=== PATIENT | female | born 1990 | race Caucasian/White ===

== ENCOUNTER 2017-03-21 10:18 | Inpatient (IN) | payer BC ==
[~2017-03-21] VITALS: Ht 167.6 cm; Wt 117.3 kg
[~2017-03-21 10:18] MED LIST: ETONMIS VAGRING
[2017-03-21] MEDS ORDERED: PRENTAB26 PO (11:07)
[2017-03-21 11:08] VITALS: Ht 167.6 cm; Wt 117.3 kg
[2017-03-21] MEDS ORDERED: LACTATED RINGER'S 1000ML 1,000 ML IV SCH ×3 (13:30→15:01)
[2017-03-21] MEDS ORDERED: LACTATED RINGER'S 1000ML 1,000 ML IV PRN (15:01)
[2017-03-21] MEDS ORDERED: LACTATED RINGER'S 1000ML 500 ML IV PRN ×2 (15:02→22:36)
[2017-03-21] MEDS ORDERED: OXYTOCIN 30 UNITS/500ML NSS IV PRN (15:15)
[2017-03-21 15:43] LABS: HEMATOCRIT 36.6 % (37-47); MEAN CELL VOLUME 85.3 fL (80-100); MEAN CORPUSCULAR HEMOGLOBIN 28.7 pg (25-34); MEAN CORPUSCULAR HGB CONC 33.6 g/dl (32-36); MEAN PLATELET VOLUME 10.7 fL (7.4-10.4); PLATELET COUNT 277 K/uL (130-400); RED BLOOD COUNT 4.29 M/uL (4.2-5.4)
[2017-03-21] MEDS ORDERED: BUPIVACAINE 0.25% 30 ML VIAL ONE (21:29)
[2017-03-21] MEDS ORDERED: EpHEDrine SULFATE INJ 50 MG/ML AMP ONE (21:29)
[2017-03-21] MEDS ORDERED: FENTANYL 2MCG/ML ROPIV 1.25MG/ML 100ML BAG EPI ONE (21:30)
[2017-03-21] MEDS ORDERED: FENTANYL CITRATE INJ 50 MCG/1 ML 2 ML VIAL ONE (21:30)
[2017-03-21] MEDS ORDERED: NALOXONE HCL INJ 1 MG in SODIUM CHLORIDE 0.9% 1000ML 1,000 ML IV PRN (22:36)
[2017-03-21] MEDS ORDERED: NALBUPHINE HCL INJ 10 MG/ML AMP IV PRN (22:45)
[2017-03-21] MEDS ORDERED: ONDANSETRON INJ 2 MG/ML 2 ML VIAL IV PRN (22:45)
[2017-03-21] MEDS ORDERED: DiphenhydrAMINE HCL 50 MG/ML VIAL IV PRN (22:45)
[2017-03-21] MEDS ORDERED: FENTANYL 2MCG/ML ROPIV 1.25MG/ML 100ML BAG EPI PRN (22:45)
[2017-03-21] MEDS ORDERED: EpHEDrine SULFATE INJ 50 MG/ML AMP IV PRN (22:45)
[2017-03-21] MEDS ORDERED: NALOXONE HCL INJ 0.4 MG/1 ML VIAL/CARP IV PRN (22:45)
[2017-03-22] MEDS ORDERED: LACTATED RINGER'S 1000ML 1,000 ML IV SCH (00:44)
[2017-03-22] MEDS ORDERED: OXYCODONE/ACETAMINOPHEN 5-325 TAB PO PRN (00:45)
[2017-03-22] MEDS ORDERED: HYDROCORTISONE ACETATE 25 MG SUPP PR PRN (00:45)
[2017-03-22] MEDS ORDERED: LANOLIN OINT EXT PRN ×2 (00:45)
[2017-03-22] MEDS ORDERED: SUPERCREAM 0.870 % 15GM JAR EXT PRN (00:45)
[2017-03-22] MEDS ORDERED: DIPHTHERIA/TETANUS/PERTUSSIS 0.5 ML SYR/VIAL IM. ONE (00:45)
[2017-03-22] MEDS ORDERED: MEASLES, MUMPS & RUBELLA VIRUS VIAL SQ. ONE (00:45)
[2017-03-22] MEDS ORDERED: OXYTOCIN 30 UNITS/500ML NSS IV PRN (00:45)
[2017-03-22] MEDS: BENZOCAINE 20% AER SPR 82.5 GM CAN EXT PRN (03:05)
[2017-03-22 03:15] VITALS: BP 126/73; PULSE 86; TEMP 36.9
--- NOTE | 2017-03-22 07:14 | Anesthesia Procedure Note ---
Anesthesia Epidural Removal Nt Date & Time Mar 22, 2017 at 07:14 Vital Signs Pain Intensity: 0.0 Vital Signs Past 12 Hours Date Time Temp Pulse Resp B/P (MAP) Pulse Ox O2 Delivery O2 Flow Rate FiO2 03/22/17 03:15 36.9 86 18 126/73 03/22/17 03:15 Room Air Notes Mental Status: alert / awake / arousable, participated in evaluation Nausea / Vomiting: adequately controlled Pain: adequately controlled Airway Patency, RR, SpO2: stable & adequate BP & HR: stable & adequate Hydration State: stable & adequate Neuraxial Anesthesia: was administered, sensory block is resolved Anesthetic Complications: no major complications apparent, pt satisfied with anesthetic care Epidural: removed without complications, with tip intact
[2017-03-22 07:20] VITALS: BP 120/86; PULSE 76; TEMP 36.8; O2SAT 100
[2017-03-22] MEDS: PRENATAL VITAMIN TAB PO SCH (07:33)
[2017-03-22] MEDS: DOCUSATE SODIUM 100 MG CAP PO SCH ×2 (07:33→20:08)
[2017-03-22] MEDS: FERROUS SULFATE 325 MG TAB PO SCH (07:33)
[2017-03-22] MEDS: IBUPROFEN 600 MG TAB PO PRN ×3 (07:33→17:52)
--- NOTE | 2017-03-22 07:58 | DELIVERY SUMMARY ---
DATE OF OPERATION: 03/22/2017 DATE OF DELIVERY: 03/22/2017. TIME OF DELIVERY OF BABY: 0013 a.m. TIME OF DELIVERY OF PLACENTA: 0034 a.m. DETAILS OF DELIVERY: The patient was found to be fully dilated and desired to push. She pushed for about 20 minutes and her perineum was found to be very short and posterior fourchette about 1.5 cm from external anal sphincter. After verbal consent was obtained small right medial lateral episiotomy was opened to prevent laceration in anal sphincter and baby's head was delivered without difficulty. Shoulders were delivered spontaneously. The baby was handed off to the mother. Mother and nose were suctioned and baby was dried. Cord was clamped x2 and cut at 1 minute delay. Cord blood was obtained. Then per patient's request cord blood was collected for donation. Vagina and perineum were checked for lacerations. There was only a small right medial lateral episiotomy which was opened earlier. No other lacerations were found. It was repaired with 2-0 Vicryl in a running locked fashion bringing the vagina and mucosa together and bulbocavernosus muscle together, skin in subcuticular fashion. Excellent hemostasis was achieved. The placenta was found to be in the vagina and delivered spontaneously intact and complete. The uterus was explored and found to be empty. Lower segment was cleared of all clots and debris, fundus was firm. EBL was 200. Mother and baby tolerated the procedure well. Sponge, lap, needle and instrument counts were correct x2. The baby was a viable female , Apgars 8/9. Weight was 2859 gr. No complications happened and I was present during the whole procedure. I attest to the content of the Intraoperative Record and any orders documented therein. Any exceptions are noted below. MTDD
[2017-03-22 12:45] VITALS: BP 126/83; PULSE 87; TEMP 36.7; O2SAT 98
[2017-03-22 18:40] VITALS: BP 121/78; PULSE 86; TEMP 36.7
[2017-03-22 20:00] VITALS: BP 135/80; PULSE 94; TEMP 36.4
[2017-03-22] MEDS: ACETAMINOPHEN 325 MG TAB PO PRN (20:11)
[2017-03-22 23:30] VITALS: BP 144/83; PULSE 90; TEMP 36.5
[2017-03-23] MEDS: IBUPROFEN 600 MG TAB PO PRN ×3 (01:02→12:29)
[2017-03-23] MEDS: ACETAMINOPHEN 325 MG TAB PO PRN (04:10)
[2017-03-23] MEDS: BENZOCAINE 20% AER SPR 82.5 GM CAN EXT PRN (04:12)
[2017-03-23 06:15] LABS: HEMATOCRIT 29.5 % (37-47)
[2017-03-23] MEDS: DOCUSATE SODIUM 100 MG CAP PO SCH (07:19)
[2017-03-23] MEDS: PRENATAL VITAMIN TAB PO SCH (07:19)
[2017-03-23] MEDS: FERROUS SULFATE 325 MG TAB PO SCH (07:19)
[2017-03-23 08:45] VITALS: BP 136/83; PULSE 86; O2SAT 98
--- NOTE | 2017-03-23 12:14 | OB/GYN Progress Note ---
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 Patient is seen and examined. She feels well, no complaints. Likes to be discharged Ambulating without dizziness Voiding without difficulty Tolerating regular diet with out N&V Bleeding is minimal No fever/ chills/ CP/ SOB/ N&V/ Leg pain Breast feeding without problems Date Time Temp Pulse Resp B/P (MAP) Pulse Ox O2 Delivery O2 Flow Rate FiO2 03/23/17 08:45 98 Room Air 03/23/17 08:45 86 18 136/83 (100) 98 Room Air 03/22/17 23:30 36.5 90 16 144/83 (103) 03/22/17 23:30 Room Air 03/22/17 20:00 36.4 94 18 135/80 (98) 03/22/17 18:40 36.7 86 18 121/78 (92) Room Air 03/22/17 18:40 Room Air 03/22/17 12:45 36.7 87 18 126/83 (97) 98 Room Air Test 03/21/17 15:23 03/21/17 15:32 03/23/17 06:04 Amniotic Fluid Protein NEG White Blood Count 12.20 H Red Blood Count 4.29 Hemoglobin 12.3 9.6 L Hematocrit 36.6 L 29.5 L Mean Corpuscular Volume 85.3 Mean Corpuscular Hemoglobin 28.7 Mean Corpuscular Hemoglobin Concent 33.6 RDW Standard Deviation 44.8 RDW Coefficient of Variation 14.5 Platelet Count 277 Mean Platelet Volume 10.7 H PE: General: Alert, orientedx3, NAD Abd: soft, NT, fundus firm, below Umbilicus Perineum intact, Lochia rubra minimal Ext; NT, no edema AP: 26 yo s/p , ppd# 1 VSS Afebrile doing well Continue routine care All questions were answered Instructions were given when to call D/C home , f/u in office
--- NOTE | 2017-03-23 12:18 | Discharge Instructions ---
Discharge Instructions Date of Service Mar 23, 2017. Admission Reason for Admission: R/O Rupture Of Membranes Discharge Discharge Diagnosis / Problem: Discharge Goals Goal(s): Routine recovery after delivery Activity Recommendations Activity Limitations: as noted below Lifting Limitations: gradually increase as tolerated Exercise/Sports Limitations: until after follow-up appointment May Resume Sexual Activity: after follow-up appointment Shower/Bathe: keep incision dry Driving or Machine Use: no limitations ACTIVITY RECOMMENDATIONS: * Gradual return to full activity over the next 2-3 weeks. * No lifting - nothing heavier than baby over the next 2-3 weeks. * Do not engage in vigorous exercise, sexual activity or sports until cleared by your physician. * Do not drive or operate any motorized equipment until cleared by your physician. * You may shower/bathe daily. BREAST CARE: If you are not breast feeding: * Wear a supportive bra 24 hours a day for one to two weeks. * Avoid stimulating your breasts and nipples as much as possible during the first few weeks after delivery. * When taking a shower, have the warm water hit your back, not breasts. * When your breasts feel full, apply ice packs. Usually three to four times a day helps ease the discomfort. * Take a mild pain medication (Tylenol/Motrin) when you are uncomfortable. If breast feeding: * Use breast milk to lubricate nipples. Lansinoh cream may be used for sore nipples. You do not need to remove cream prior to breast feeding. If using a different brand of cream, check the label for directions regarding removal of cream prior to nursing. * Wear a supportive bra. * If having problems with breasts or breast feeding, call a ergonomics consultant or your health care provider. EPISIOTOMY CARE: After delivery, if you have an episiotomy (stitches), the following steps will ease discomfort and aid healing. * For the first 24 hours after delivery, place ice packs next to your episiotomy to help reduce swelling. * After the first 24 hour-period, sitz baths, either portable or in the tub, are suggested. A shower with a shower arm sprayed over the episiotomy may be comforting. * Yocasta care should be done after each voiding and bowel movement. Squirt warm water from a plastic bottle over the perineum (region of the body between the anus and urinary opening) and pat dry. * Use Dermoplast to ease discomfort. Shake container. Stewart directly over the episiotomy. * Place a Tucks on a clean sanitary pad next to your episiotomy. OVER THE COUNTER MEDICATION: * For discomfort or pain, you may use Acetaminophen (Tylenol), Ibuprofen (Advil ), or Naproxen (Aleve) following the package directions. * For constipation you may use Colace following the package directions. SPECIAL CARE INSTRUCTIONS: When you are discharged from the hospital, it is important for you to follow the instructions listed below: * During the first week at home, you should be able to care for yourself and your baby. In addition, the usual light household activities are encouraged. * Limit your activities to the way you feel. Do not try to clean the house or move furniture. Be sensible. * If you actively engage in sports and have done so up until the time of your delivery, you may resume these activities as soon as you feel able. This may take up to one month or even longer. Use good judgment. * Continue to take your vitamins for at least six weeks after the of your baby. * Your diet need not be limited unless you were on a special diet before your delivery. Breast-feeding mothers need around 2500 calories per day and at least 64-80 ounces of fluid per day (8 to 10 glasses). * You should eat foods from the four major food groups. Crash diets or fad diets are to be avoided. Eating lean meats, fresh fruits and vegetables, low-fat dairy products, high fiber foods and a regular exercise program, will help you get back to your pre- weight without putting your health at risk. * Constipation is sometimes a problem after delivery. Take a mild laxative as needed. If breast feeding, Milk of Magnesia is acceptable to use. You may use a suppository or Fleets enema if no episiotomy. * A daily shower or tub bath is suggested. Be sure to thoroughly and gently dry the perineum. * A bloody vaginal discharge will usually continue until around four weeks post . A small amount of bleeding may continue for as long as six weeks. Vaginal discharge changes from the bright red bleeding after delivery to pink then brownish and finally yellowish-pink before becoming white and disappearing. * Bleeding may increase with activity. Your first period may come in 4-8 weeks. If you are breast feeding, your period may be delayed even longer. * [place] (sex) can begin whenever both you and your partner feel comfortable and do not have any form of genital infection. It is recommended that you wait until after your return appointment and discuss with your physician. If you have questions, please talk to your health care practitioner. A condom should be used to prevent infection and . * Foreplay, gentle intercourse and lubrication is very important the first several times to prevent pain. A water-based lubricant such as K-Y jelly or Astroglide may be used. * Tampons may be used six weeks after delivery. * Douching should be avoided for 6 weeks after delivery. * If you have RH negative blood and your baby is RH positive, you will receive RHOGAM by injection prior to discharge. The nurse will give you a card to keep with you that has the date and place that you received RHOGAM after delivery. * During your care, you had a Rubella screen done to check for the presence of rubella antibodies in your blood. If your test was negative, you will receive a Rubella vaccine prior to discharge. This vaccine may cause a fever, soreness at the injection site and flu-like symptoms. If these symptoms persist, notify your health care practitioner. is not advised for three months after a Rubella vaccine. There is a higher chance of having a baby with defects if conceived within three months of getting the vaccine. * If you were discharged 24 hours from delivery or before 48 hours: Visiting nurses will come to your home 48 hours after discharge to assess you and your baby. The visiting nurse will meet with you while you are in the hospital to arrange a time and get directions to your home. * Verbalizes understanding of car seat law as reviewed with patient nursing. * Car Seat hand-out given and reviewed with patient by nursing. * Shaken baby information reviewed with patient by nursing. Call you doctor if: * Heavy bleeding (saturating several pads an hour) or passing clots the size of your fist. * A fever >101 degrees F (38.3 degrees C) on two occasions four hours apart and/or chills. * Unusual pain in the pelvic or vaginal areas. * "Baby Blues" lasting longer than two weeks. If you have any questions or concerns, call your health care practitioner at . FOLLOW-UP VISIT: * Please call the office at to schedule a 6 week examination. It is important you keep this appointment. * It is important for you to make arrangements for either yearly or twice yearly check-ups thereafter. . Current Hospital Diet Patient's current hospital diet: Regular OB Diet Discharge Diet Recommended Diet: Regular Diet Pending Studies Studies pending at discharge: no Medical Emergencies . Who to Call and When: Medical Emergencies: If at any time you feel your situation is an emergency, please call 911 immediately. . Non-Emergent Contact Non-Emergency issues call your: Surgeon Call Non-Emergent contact if: temperature is above 100.5, temperature is above 101, your pain is not controlled, wound has increased drainage, wound has increased redness . . "Provider Documentation" section prepared by Marianela Lui. . VTE Core Measure Inpt VTE Proph given/why not?: Treatment not indicated
[2017-03-23 13:55] VITALS: BP_DIAS 83; PULSE 86; TEMP 36.5
[2017-03-23] MEDS ORDERED: BISACODYL 5 MG TABEC PO SCH (20:00)
[2017-03-24] MEDS ORDERED: BISACODYL 10 MG SUPP PR PRN (07:00)
== END 2017-03-23 13:55 | disposition home or self-care (01) | DRG 775 ==
LOC: C.OPB 10:18 → C.LD 10:18 → C.OPB 15:02 → C.OBG 03-22 03:26 → EDSTATUS 03-23 10:21
PROVIDERS: ADMIT Obstetrics & Gynecology; ATTEND Obstetrics & Gynecology
PROC: 10E0XZZ Delivery of Products of Conception, External Approach (ICD-10-PCS; principal; 2017-03-22)
PROC: 0W8NXZZ Division of Female Perineum, External Approach (ICD-10-PCS; principal; 2017-03-22)
DX: O42.92 Full-term premature rupture of membranes, unspecified as to length of time between rupture and onset of labor (principal); Z37.0 Single live birth; O75.89 Other specified complications of labor and delivery; N90.89 Other specified noninflammatory disorders of vulva and perineum; Z3A.39 39 weeks gestation of pregnancy

== ENCOUNTER 2019-02-27 23:40 | Inpatient (IN) ==
[2019-02-28] MEDS ORDERED: OXYTOCIN 30 UNITS/500 ML BAG IV PRN ×3 (00:23→15:40)
[2019-02-28 00:38] LABS: Hematocrit (blood only) 36.7 % (37-47); Hemoglobin 12.7 g/dL (12.0-16.0); Mean Corpuscular Volume 84.4 fL (80-100); Mean Platelet Volume 11.1 fL (7.4-10.4); Platelet Count 267 K/uL (130-400); RDW Coefficient of Variation 14.1 % (11.5-14.5); RDW Standard Deviation 43.9 fL (36.4-46.3); Red Blood Count 4.35 M/uL (4.2-5.4); White Blood Count 14.11 K/uL (4.8-10.8)
[2019-02-28] MEDS: LACTATED RINGER'S 1,000 ML IV PRN ×2 (00:38→07:01)
--- NOTE | 2019-02-28 00:39 | History & Physical Report ---
Date of Service February 28, 2019 Assessment & Plan (1) SROM (spontaneous rupture of membranes): 28 yo at 38 wks with SROM, early labor with mild ctxs VSS afebrile FHR reassuring GBS negative Discussed decreased risk of intraamniotic infection by augmentation/ induction of labor with pitocin She politely declined and wanted expectant management Agrees with pitocin if no change in 2 hours Plan admit, labs, monitor, SCD's, expectant management for now All questions were answered History of Present Illness Chief Complaint: Leaking of amniotic fluid Primary Care Provider: Deandre Sauceda MD Patient is a 28 yo at 38 wks, who felt a gush of fluid leakage at 2144 last ight, continued with more gushes of clear fluid and has been trcikling since then No ctxs but mild cramping No VB +FM's No ARMOS/ Change in vision/ N&V/ epig or RUQ pain/ feve/ chills/ abd pain/ CP/ SOB Her has been uncomplicated GBS negative Allergies Allergy/AdvReac Type Severity Reaction Status Date / Time No Known Allergies Allergy Unverified 01/18/13 07:39 Home Medications Home Medications Medication Instructions Recorded Confirmed Type Multivit/Min/Iron/Fol Ac/Pren 1 tab PO DAILY #0 tab 03/21/17 History ( Vitamin) Patient History OB History FT in 2017, viabel female infant, 6 lb 11 oz, by myself 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
[2019-02-28 00:40] LABS: Mean Corpuscular Hgb Conc 34.6 g/dL (32-36)
--- NOTE | 2019-02-28 06:03 | Obstetrical Progress Note ---
Date of Service February 28, 2019 Subjective Patient is reevaluated Ctxs are still mild, was able to sleep through them She did not want to start Pitocin which was ordered earlier VSS Afebrile FHR categ I VE; 3-4 cm/ 60%/ -3, posterior Irregular mild ctxs AP: 28 yo at 38 wks with SROM, latent labor Recommended Pitocin augmentation, still declines, desires expectant management, understands increased risk of infection to herself and the baby Continue to monitor Results & Data Vital Signs (Past 12 Hours) Vital Signs Temp Pulse Resp BP 02/28/19 05:15 36.5 C 18 02/28/19 03:30 36.8 C 96 H 18 108/75 02/28/19 02:15 36.6 C 02/28/19 00:15 36.8 C 81 18 130/69 02/28/19 00:02 81 130/69
--- NOTE | 2019-02-28 08:09 | Labor Progress Brief Note ---
Date of Service February 28, 2019 Met pt and family Pt is known to me from yesterday Pt doing well SROM 21:45HR on 02/27/19 FHR; CAT1 VE; 3-4/60/-3 Ctx ; Mild, Irregular discussed risk of infection with prolonged rapture Pt is agreeable to Pitocin after walking for an hour Results & Data Vital Signs (Past 12 Hours) Vital Signs Temp Pulse Resp BP 02/28/19 07:04 36.9 C 96 H 20 131/83 02/28/19 05:15 36.5 C 18 02/28/19 03:30 36.8 C 96 H 18 108/75 02/28/19 02:15 36.6 C 02/28/19 00:15 36.8 C 81 18 130/69 02/28/19 00:02 81 130/69
[2019-02-28] MEDS ORDERED: fentaNYL citrate 100 MCG/2 ML VIAL ONE (09:46)
[2019-02-28] MEDS ORDERED: BUPIVACAINE 0.25% 30 ML VIAL ONE (09:46)
[2019-02-28] MEDS ORDERED: ePHEDrine sulfate 50 MG/ML AMP ONE (09:46)
[2019-02-28] MEDS ORDERED: fentaNYL 2MCG/ML ROPIV 1.25MG/ML 100 ML BAG EPI ONE (09:47)
[2019-02-28] MEDS ORDERED: NALBUPHINE HCL INJ 10 MG/ML AMP IV PRN (10:11)
[2019-02-28] MEDS ORDERED: NALOXONE HCL 0.4 MG/1 ML VIAL/CARP IV PRN (10:11)
[2019-02-28] MEDS ORDERED: NALOXONE HCL 1 MG in SODIUM CHLORIDE 0.9% 1000ML 1,000 ML IV PRN (10:11)
[2019-02-28] MEDS ORDERED: ePHEDrine sulfate 50 MG/ML AMP IV PRN (10:11)
[2019-02-28] MEDS ORDERED: DiphenhydrAMINE HCL 50 MG/ML VIAL IV PRN (10:11)
[2019-02-28] MEDS ORDERED: fentaNYL 2MCG/ML ROPIV 1.25MG/ML 100 ML BAG EPI PRN (10:11)
[2019-02-28] MEDS ORDERED: ONDANSETRON INJ 2 MG/ML 2 ML VIAL IV PRN (10:11)
--- NOTE | 2019-02-28 10:14 | Anesthesiology Consultation ---
Date of Service February 28, 2019 Assessment & Plan Chart Review Chart Review: Patient NOT seen in Pre Admission Testing and Acceptable Risk for Labor Epidural Consults Requested none ASA ASA2 Proposed Anesthesia Anesthesia Type: Labor Epidural and CSE Risk / Benefits Reviewed With: PT / POA / Parent / Guardian, Accepts Plan and Informed Consent Obtained History Height/Weight Height: 5 ft 6 in Weight: 121.109 kg Allergies Allergy/AdvReac Type Severity Reaction Status Date / Time No Known Allergies Allergy Verified 02/28/19 00:57 Medications Home Medications Medication Instructions Recorded Confirmed Last Taken vit no.[id number] 1 tab PO DAILY 02/28/19 02/28/19 02/27/19 08:00 [ Vitamin] Active Medications Generic Name Dose Route Start Last Admin Trade Name Freq PRN Reason Stop Dose Admin Lactated Ringer's 1,000 mls @ 150 mls/hr 02/28/19 00:23 02/28/19 10:09 Lr IV 03/02/19 00:22 999 mls/hr .[id number] PRN Infusion L&D Protocol Protocol NPO Date Last Intake of Fluids: 02/28/19 Time Last Intake of Fluids: 08:30 Date Last Intake of Solids: 02/28/19 Time Last Intake of Solids: 08:30 Exercise / Class Metabolic Activity II 4-5 Yardwork/Stairs/Walk up hill Past Anesthesia History No Hx of Anesthesia Complications and No Family Hx of Anesthesia Complications History of PONV No Hx of PONV Social History Smoking Status: Former smoker tobacco type: cigarettes Smoking cigarettes per day: 20 Do You Dip or Chew Tobacco: No Smoking End Date: 2014 Hx Alcohol Use: No Hx Substance Use: No Review of Systems no chest pain or sob Physical Exam Vital Signs Last Vital Signs Temp 36.5 C 02/28/19 09:10 Pulse 90 02/28/19 10:12 Resp 20 02/28/19 09:10 BP 137/71 02/28/19 10:07 Pulse Ox 97 02/28/19 10:12 ENMT Mouth: no TMJ abnormality Thyromental Distance: > or= 3.5 Finger Breadths Mallampati Class: II Neck normal visual inspection Respiratory normal respiratory effort Auscultation: lungs clear to auscultation bilaterally Cardiovascular Rate/Rhythm: regular rate and regular rhythm Musculoskeletal Spine: normal cervical ROM Neurologic moves all extremities Psychiatric Orientation: alert and oriented x 3
[2019-02-28] MEDS ORDERED: METHYLERGONOVINE MALEATE 0.2 MG/ML AMP ONE (15:33)
[2019-02-28] MEDS ORDERED: BENZOCAINE 20% AER SPR 82.5 GM CAN EXT PRN (15:40)
[2019-02-28] MEDS ORDERED: BISACODYL 10 MG SUPP PR PRN (15:40)
[2019-02-28] MEDS ORDERED: METHYLERGONOVINE MALEATE 0.2 MG/ML AMP IM ONE (15:40)
[2019-02-28] MEDS ORDERED: DIPHTHERIA/TETANUS/PERTUSSIS 0.5 ML SYR/VIAL IM ONE (15:40)
[2019-02-28] MEDS ORDERED: SUPERCREAM 0.870% 15 GM JAR EXT PRN (15:40)
[2019-02-28] MEDS ORDERED: HYDROCORTISONE ACETATE 25 MG SUPP PR PRN (15:40)
[2019-02-28] MEDS ORDERED: miSOPROStol 200 MCG TAB PR ONE (15:40)
[2019-02-28] MEDS ORDERED: ACETAMINOPHEN 325 MG TAB PO PRN (15:40)
[2019-02-28] MEDS ORDERED: miSOPROStol 200 MCG TAB ONE (15:44)
--- NOTE | 2019-02-28 15:58 | Anesthesia Procedure Note ---
Date of Service February 28, 2019 Anesthesia Post Epidural Note Vital Signs Vital Signs: Temp Pulse Resp BP Pulse Ox 02/28/19 15:55 20 02/28/19 15:41 83 20 122/58 L 02/28/19 15:31 89 135/65 02/28/19 15:28 111 H 90 02/28/19 15:27 99 H 99 02/28/19 15:22 99 H 98 02/28/19 15:17 92 H 123/82 100 02/28/19 15:12 94 H 99 02/28/19 15:07 87 99 02/28/19 15:02 87 129/73 98 02/28/19 15:00 37.0 C 20 02/28/19 14:57 90 99 02/28/19 14:52 87 99 02/28/19 14:47 94 H 99 02/28/19 14:46 89 121/68 02/28/19 14:42 88 100 02/28/19 14:37 87 100 02/28/19 14:32 89 119/72 100 02/28/19 14:30 20 02/28/19 14:27 91 H 99 02/28/19 14:22 88 100 02/28/19 14:19 88 88 L 02/28/19 14:17 87 100 02/28/19 14:16 90 115/70 02/28/19 14:12 98 H 99 02/28/19 14:07 93 H 99 02/28/19 14:02 97 H 97 02/28/19 14:00 18 02/28/19 13:57 91 H 98 02/28/19 13:52 94 H 99 02/28/19 13:47 97 H 121/70 99 02/28/19 13:42 92 H 99 02/28/19 13:37 97 H 99 02/28/19 13:32 95 H 119/78 98 02/28/19 13:30 36.6 C 18 02/28/19 13:27 89 98 02/28/19 13:22 101 H 99 02/28/19 13:17 98 H 99 02/28/19 13:16 91 H 128/82 02/28/19 13:12 98 H 100 02/28/19 13:07 100 H 97 02/28/19 13:06 113 H 92 02/28/19 13:02 90 97 02/28/19 13:01 93 H 118/71 02/28/19 13:00 20 02/28/19 12:57 86 97 02/28/19 12:52 90 98 02/28/19 12:47 86 123/73 99 02/28/19 12:42 99 H 99 02/28/19 12:37 88 99 02/28/19 12:32 85 100 02/28/19 12:31 92 H 122/72 02/28/19 12:30 20 02/28/19 12:27 87 99 02/28/19 12:22 88 98 02/28/19 12:17 85 121/73 99 02/28/19 12:12 90 99 02/28/19 12:07 94 H 99 02/28/19 12:02 93 H 122/77 100 02/28/19 12:00 36.6 C 20 02/28/19 11:57 99 H 99 02/28/19 11:52 88 99 02/28/19 11:47 90 123/78 99 02/28/19 11:42 90 98 02/28/19 11:37 96 H 99 02/28/19 11:32 87 98 02/28/19 11:30 88 20 96/52 L 02/28/19 11:27 81 97 02/28/19 11:22 80 97 02/28/19 11:18 88 94/55 L 02/28/19 11:17 91 H 97 02/28/19 11:12 88 108/55 L 96 02/28/19 11:07 98 H 98 02/28/19 11:06 96 H 103/51 L 02/28/19 11:02 111 H 98 02/28/19 11:01 89 122/57 L 02/28/19 11:00 20 02/28/19 10:57 100 H 97 02/28/19 10:55 96 H 130/67 02/28/19 10:52 110 H 98 02/28/19 10:50 20 02/28/19 10:49 100 H 101/58 L 02/28/19 10:47 97 H 139/58 L 98 02/28/19 10:44 37.0 C 94 H 18 114/59 L 02/28/19 10:42 111 H 105/56 L 98 02/28/19 10:40 102 H 126/59 L 02/28/19 10:39 20 02/28/19 10:38 85 129/66 02/28/19 10:37 84 98 02/28/19 10:34 85 117/63 02/28/19 10:32 84 122/67 97 02/28/19 10:27 94 H 97 02/28/19 10:22 84 99 02/28/19 10:17 92 H 99 02/28/19 10:12 90 97 02/28/19 10:07 88 137/71 96 02/28/19 09:10 36.5 C 90 20 129/62 02/28/19 07:04 36.9 C 96 H 20 131/83 02/28/19 05:15 36.5 C 18 02/28/19 03:30 36.8 C 96 H 18 108/75 02/28/19 02:15 36.6 C 02/28/19 00:15 36.8 C 81 18 130/69 02/28/19 00:02 81 130/69 Pain Intensity Abdomen: Pain Intensity: 5 Notes Mental Status: alert / awake / arousable and participated in evaluation Patient Amnestic to Procedure: Yes Nausea / Vomiting: adequately controlled Pain: adequately controlled Airway Patency, RR, SpO2: stable & adequate BP & HR: stable & adequate Hydration State: stable & adequate Neuraxial Anesthesia: was administered and sensory block resolved Anesthetic Complications: no major complications apparent and Pt Satisfied with anesthetic care Epidural: Removed without complications and With tip intact
[2019-02-28] MEDS: DOCUSATE SODIUM 100 MG CAP PO SCH (21:20)
[2019-02-28] MEDS: IBUPROFEN 600 MG TAB PO PRN (21:21)
--- NOTE | 2019-02-28 21:22 | Delivery Summary ---
DATE OF OPERATION: 02/28/2019 DELIVERY NOTE The patient delivered a live in left occiput anterior presentation. There was nuchal cord which was easily reduced. was delivered, placed on mother's abdomen. Cord was clamped and cut after 1 minute. Inspection of the perineum showed a first-degree midline laceration. Laceration is repaired with 2-0 Vicryl. There was good hemostasis after repair. Inspection of the placenta shows a 3-vessel cord. Placenta otherwise appeared grossly normal. All instruments were removed from the vagina and accounted for x2 including sutures, needles, and retractors. Estimated blood loss is 500 mL. Baby and mother are doing well in recovery. I attest to the content of the Intraoperative Record and any orders documented therein. Any exception s are noted below.
[2019-03-01 06:31] LABS: Hematocrit (blood only) 36.2 % (37-47); Hemoglobin 12.4 g/dL (12.0-16.0); Mean Corpuscular Hgb Conc 34.3 g/dL (32-36); Mean Corpuscular Volume 85.4 fL (80-100); Mean Platelet Volume 11.3 fL (7.4-10.4); Platelet Count 234 K/uL (130-400); RDW Coefficient of Variation 14.3 % (11.5-14.5); RDW Standard Deviation 44.4 fL (36.4-46.3); Red Blood Count 4.24 M/uL (4.2-5.4); White Blood Count 14.19 K/uL (4.8-10.8)
[2019-03-01] MEDS: IBUPROFEN 600 MG TAB PO PRN ×3 (08:59→17:17)
[2019-03-01] MEDS: DOCUSATE SODIUM 100 MG CAP PO SCH ×2 (08:59→20:43)
[2019-03-01] MEDS: FERROUS SULFATE 325 MG TAB PO SCH (08:59)
[2019-03-01] MEDS: PRENATAL VITAMIN 1 TAB PO SCH (08:59)
--- NOTE | 2019-03-01 09:06 | Obstetrical Progress Note ---
Date of Service March 01, 2019 Assessment & Plan (1) normal course: Pt doing well no complaints anticipate disch tomorrow Subjective Ambulation: ambulating normally Voiding: no voiding problems Passing Gas:: Yes Diet Tolerance:: regular diet Lochia:: Small Feeding Type:: breast feeding Review of Systems All systems reviewed & are unremarkable except as noted in HPI & below Physical Exam Vital Signs (Past 24 Hours) Last Vital Signs Temp 36.6 C 03/01/19 07:22 Pulse 83 03/01/19 07:22 Resp 18 03/01/19 07:22 BP 111/79 03/01/19 07:22 Pulse Ox 97 03/01/19 07:22 Constitutional WD/WN, vitals as above well developed and well nourished Eyes PERRL, conjunctivae normal, anicteric sclerae Neck trachea midline, no thyromegaly Respiratory normal respiratory effort, lungs clear to auscultation Auscultation: no crackles, no rales and no wheezes Cardiovascular RRR, no murmur, no edema Gastrointestinal (Abdomen) normal bowel sounds, soft, nontender, no hepatosplenomegaly Uterus is below umbilicus Musculoskeletal no cyanosis or clubbing, extremities motor strength 5/5 Skin no rashes, warm and dry Neurologic patellar DTR's 2+ bilat, sensation intact Psychiatric A+Ox3, euthymic affect Genitourinary normal external appearance
[2019-03-01] MEDS ORDERED: BISACODYL 5 MG TABEC PO SCH (20:00)
--- NOTE | 2019-03-02 04:06 | Obstetrical Progress Note ---
Date of Service March 02, 2019 Assessment & Plan (1) normal course: Discharge today Supervising Physician Co-Signing Physician Notes Maren Cline MD Subjective Pt feeling well. No problems. Review of Systems Review of Systems: All systems reviewed & are unremarkable except as noted in HPI & below Physical Exam Respiratory: normal respiratory effort, lungs clear to auscultation Cardiovascular: RRR, no murmur, no edema Gastrointestinal (Abdomen): Uterus firm Results & Data Vital Signs (Past 12 Hours) Vital Signs Temp Pulse Resp BP Pulse Ox 03/01/19 23:30 37 C 74 16 118/83 96 03/01/19 20:00 37.1 C 89 16 110/77 97
--- NOTE | 2019-03-02 04:15 | Discharge Summary ---
Date of Service March 02, 2019 Admission HPI Per Admitting Provider Patient is a 28 yo at 38 wks, who felt a gush of fluid leakage at 2145 last ight, continued with more gushes of clear fluid and has been trcikling since then No ctxs but mild cramping No VB +FM's No RAMOS/ Change in vision/ N&V/ epig or RUQ pain/ feve/ chills/ abd pain/ CP/ SOB Her has been uncomplicated GBS negative Discharge Data Consultations 02/28/19 00:23 Consult Anesthesiology Stat Hospital Course (1) normal course: Discharge today Discharge Instructions Call for 6 week post exam OB - DS: Summary Time Spent with Patient Total time spent providing and/or coordinating discharge services: 15 minutes Course Administered Medications Acetaminophen (Tylenol) 650 mg PO Q6H PRN PRN Reason: Pain/RAMOS/Fever Stop: 03/30/19 15:39 Last Admin: 02/28/19 22:50 Dose: 650 mg Documented by: [id number] Docusate Sodium (Colace) 100 mg PO BID [facility] Stop: 03/30/19 20:59 Last Admin: 03/01/19 20:43 Dose: 100 mg Documented by: [id number] Admin: 03/01/19 08:59 Dose: 100 mg Documented by: [id number] Admin: 02/28/19 21:20 Dose: 100 mg Documented by: [id number] Ferrous Sulfate (Feosol) 325 mg PO QAM [facility] Stop: 03/31/19 08:59 Last Admin: 03/01/19 08:59 Dose: 325 mg Documented by: [id number] Ibuprofen (Motrin) 600 mg PO Q4H PRN PRN Reason: Pain/RAMOS/Cramping/Fever Stop: 03/30/19 15:39 Last Admin: 03/01/19 17:17 Dose: 600 mg Documented by: [id number] Admin: 03/01/19 13:10 Dose: 600 mg Documented by: [id number] Admin: 03/01/19 08:59 Dose: 600 mg Documented by: [id number] Admin: 02/28/19 21:21 Dose: 600 mg Documented by: [id number] Prenat Multivit/Death Claim Examiner/Iron/Folic Ac ( Vitamin) 1 tab PO [facility] Stop: 03/31/19 08:59 Last Admin: 03/01/19 08:59 Dose: 1 tab Documented by: [id number] Discontinued Medications Bisacodyl (Dulcolax) 5 mg PO 1999 [facility] Stop: 03/01/19 20:01 Last Admin: 03/01/19 20:46 Dose: Not Given Documented by: [id number] Bupivacaine HCl (Sensorcaine 0.25% Inj) Confirm Administered Dose 30 ml .ROUTE .STK-MED ONE Stop: 02/28/19 09:47 Last Admin: 02/28/19 10:21 Dose: 30 ml Documented by: [id number] Ephedrine Sulfate (Ephedrine Sulfate) Confirm Administered Dose 50 mg .ROUTE .STK-MED ONE Stop: 02/28/19 09:47 Last Admin: 02/28/19 16:21 Dose: Not Given Documented by: [id number] Fentanyl Citrate (Fentanyl Citrate) Confirm Administered Dose 100 mcg .ROUTE .STPagerDuty-MED ONE Stop: 02/28/19 09:47 Last Increment: 02/28/19 10:21 Dose: 15 mcg Documented by: [id number] Lactated Ringer's (Lr) 1,000 mls @ 150 mls/hr IV .Q6H40M PRN; Protocol PRN Reason: L&D Protocol Stop: 03/02/19 00:22 Last Infusion: 02/28/19 10:09 Dose: 999 mls/hr Documented by: [id number] Admin: 02/28/19 07:01 Dose: 150 mls/hr Documented by: [id number] Infusion: 02/28/19 07:01 Dose: 150 mls/hr Documented by: [id number] Infusion: 02/28/19 06:13 Dose: 150 mls/hr Documented by: [id number] Admin: 02/28/19 00:38 Dose: 150 mls/hr Documented by: [id number] Oxytocin (Pitocin) 30 units in 500 mls @ 333 mls/hr IV .Q1H31M PRN; Protocol PRN Reason: Labor Induction/Augmentation Stop: 03/02/19 00:39 Last Titration: 02/28/19 15:50 Dose: 19.98 units/hr, 333 mls/hr Documented by: [id number] Titration: 02/28/19 15:31 Dose: 59.94 units/hr, 999 mls/hr Documented by: [id number] Titration: 02/28/19 14:16 Dose: 0.48 units/hr, 8 mls/hr Documented by: [id number] Titration: 02/28/19 13:32 Dose: 0.48 units/hr, 8 mls/hr Documented by: [id number] Titration: 02/28/19 12:30 Dose: 0.48 units/hr, 8 mls/hr Documented by: [id number] Titration: 02/28/19 11:55 Dose: 0.36 units/hr, 6 mls/hr Documented by: [id number] Titration: 02/28/19 11:20 Dose: 0.24 units/hr, 4 mls/hr Documented by: [id number] Admin: 02/28/19 10:50 Dose: 0.12 units/hr, 2 mls/hr Documented by: [id number] Cosigned by: [id number] Methylergonovine Maleate (Methergine) Confirm Administered Dose 0.2 mg .ROUTE .STK-MED ONE Stop: 02/28/19 15:34 Last Admin: 02/28/19 15:34 Dose: 0.2 mg Documented by: [id number] Cosigned by: [id number] Methylergonovine Maleate (Methergine) 0.2 mg IM ONE ONE Stop: 02/28/19 15:41 Last Admin: 02/28/19 16:22 Dose: Not Given Documented by: [id number] Misoprostol (Cytotec) 1,000 mcg [place] ONCE ONE Stop: 02/28/19 15:41 Last Admin: 02/28/19 16:22 Dose: Not Given Documented by: [id number] Misoprostol (Cytotec) Confirm Administered Dose 1,000 mcg .ROUTE .STK-MED ONE Stop: 02/28/19 15:45 Last Admin: 02/28/19 15:37 Dose: 1,000 mcg Documented by: [id number] Ropivacaine (Epidural (L&D)) Confirm Administered Dose 100 ml EPI .STK-MED ONE Stop: 02/28/19 09:48 Last Admin: 02/28/19 10:38 Dose: 10 ml Documented by: [id number] Cosigned by: [id number]
[2019-03-02 06:50] LABS: Hematocrit (blood only) 34.6 % (37-47); Hemoglobin 11.7 g/dL (12.0-16.0)
[2019-03-02] MEDS ORDERED: PRENATAL VITAMIN 1 TAB PO SCH (09:00)
[2019-03-02] MEDS: PRENATAL VITAMIN 1 TAB PO SCH (09:06)
[2019-03-02] MEDS: IBUPROFEN 600 MG TAB PO PRN (09:06)
[2019-03-02] MEDS: DOCUSATE SODIUM 100 MG CAP PO SCH (09:06)
[2019-03-02] MEDS: FERROUS SULFATE 325 MG TAB PO SCH (09:06)
== END 2019-03-02 12:55 | disposition home or self-care (01) | DRG 807 ==
LOC: OPB 23:40 → 4S1 23:50 → 4S2 02-28 18:43

== ENCOUNTER 2021-06-23 10:59 | Inpatient (IN) ==
[2021-06-23] MEDS ORDERED: OXYTOCIN 30 UNITS/500 ML BAG IV PRN (12:11)
[2021-06-23] MEDS ORDERED: DINOPROSTONE 10 MG INSERT PV ONE (12:11)
[2021-06-23] MEDS ORDERED: PENICILLIN G POTASSIUM 6 MU in DEXTROSE 5% 250 ML IV ONE (12:30)
[2021-06-23 12:41] LABS: Hematocrit (blood only) 36.4 % (37-47); Hemoglobin 12.1 g/dL (12.0-16.0); Mean Corpuscular Hemoglobin 28.9 pg (25-34); Mean Corpuscular Hgb Conc 33.2 g/dL (32-36); Mean Corpuscular Volume 86.9 fL (80-100); Mean Platelet Volume 10.8 fL (7.4-10.4); Platelet Count 272 K/uL (130-400); RDW Coefficient of Variation 14.2 % (11.5-14.5); RDW Standard Deviation 45.1 fL (36.4-46.3); Red Blood Count 4.19 M/uL (4.2-5.4)
[2021-06-23 12:58] LABS: Albumin Level 2.5 gm/dl (3.4-5.0); Calcium 9.5 mg/dl (8.5-10.1); Est GFR (African American) 132.9 ml/min; Est GFR (Non-African American) 114.6 ml/min; Potassium 3.6 mmol/L (3.5-5.1)
[2021-06-23 13:01] LABS: Albumin Globulin Ratio 0.6 (0.9-2); Bilirubin,Total 0.2 mg/dl (0.2-1); Globulin 4.3 gm/dl (2.5-4.0); Total Protein 6.8 gm/dl (6.4-8.2)
--- NOTE | 2021-06-23 13:04 | History & Physical Report ---
Date of Service June 23, 2021 Assessment & Plan (1) Elective induction of labor planned: Plan: 30 yo at 40 wks, IOL at term VSS Afebrile GBS, FHR reassuring Cervix not favorable Discussed PG insert with Cervidil, understands process of Induction and what to expect Continue to monitor closely Admission and Anticipated Discharge Date Admission Date: June 23, 2021 History of Present Illness Primary Care Provider: Deandre Saucdea MD Patient is a 30 yo at 40 wks, scheduled IO,at term for discomfort of No ctxs/ LOF/VB FM's Her has been uncomplicated, except GBS was positive. She denies aches, change in her vision, fever chills, nausea or vomiting nor Covid symptoms. She ate lunch and ready for induction of labor. Allergies Allergy/AdvReac Type Severity Reaction Status Date / Time No Known Allergies Allergy Verified 02/28/19 00:57 Home Medications Medication Instructions Recorded Confirmed Type vits no.124-ferrous fum 1 tab PO DAILY 02/28/19 02/28/19 History 27 mg iron-folic acid 800 mcg tablet ( Vitamin) Patient History Medical History No known health problems Surgical History (Updated 06/23/21 @ 11:32 by Lisette Franklin RN) No history of previous surgery Social History Smoking Status: Former smoker Cigarettes Per Day: 20; Second Hand Exposure: No; Hx Alcohol Use: No Hx Substance Use: No Preferred Language: Belarusian Communication Ability: Effective Dough Maker Required: No Beliefs That Will Affect Care: None marital status: Current Living Situation: Family Other Information That Helps Us Care for You: No Feels Safe at Home: Yes Safety Concerns: Feels Safe At This Time Assistive Devices: None OB History 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 No h/o STD's, no HSV/ Chlmaydia/ GC Review of Systems as per Subjective / HPI Physical Exam Constitutional: well developed and well nourished Comfortable Gastrointestinal (Abdomen): normal bowel sounds, soft, nontender, no hepatosplenomegaly (gravid, Star 7-8 lb) Genitourinary: normal external appearance OB Exam Abdomen: + vertex Manual OB Exam: + cervical dilation 2 cm, + cervical effacement 30% and + station high OB Exam Monitor Tracing: + external uterine monitor used and + category I Results & Data ([facility]) Vital Signs (Past 12 Hours) Vital Signs Temp Pulse Resp BP 06/23/21 11:24 87 138/79 06/23/21 11:22 89 146/91 H 06/23/21 11:11 36.6 C 87 20 138/79 Laboratory Results Lab Results 06/23/21 06/23/21 06/23/21 Range/Units 12:15 12:15 12:26 WBC 11.40 H (4.8-10.8) K/uL RBC 4.19 L (4.2-5.4) M/uL Hgb 12.1 (12.0-16.0) g/dL Hct 36.4 L (37-47) % MCV 86.9 (80-100) fL MCH 28.9 (25-34) pg MCHC 33.2 (32-36) g/dL RDW Std Deviation 45.1 (36.4-46.3) fL RDW Coeff of Diego 14.2 (11.5-14.5) % Plt Count 272 (130-400) K/uL MPV 10.8 H (7.4-10.4) fL Sodium (136-145) mmol/L Potassium (3.5-5.1) mmol/L Chloride (98-107) mmol/L Carbon Dioxide (21-32) mmol/L Anion Gap (3-11) BUN (7-18) mg/dl Creatinine (0.6-1.2) mg/dl Est Cr Clr Drug Dosing ml/min Est GFR ( Amer) ml/min Est GFR (Non-Af Amer) ml/min BUN/Creatinine Ratio (10-20) Glucose (70-99) mg/dl Calcium (8.5-10.1) mg/dl Total Bilirubin (0.2-1) mg/dl AST (15-37) U/L ALT (12-78) U/L Alkaline Phosphatase (45-117) U/L Total Protein (6.4-8.2) gm/dl Albumin (3.4-5.0) gm/dl Globulin (2.5-4.0) gm/dl Albumin/Globulin Ratio (0.9-2) COVID-19 [facility] SARS-CoV-2, RNA, NAAT NEGATIVE (NEGATIVE) 06/23/21 Range/Units 12:26 WBC (4.8-10.8) K/uL RBC (4.2-5.4) M/uL Hgb (12.0-16.0) g/dL Hct (37-47) % MCV (80-100) fL MCH (25-34) pg MCHC (32-36) g/dL RDW Std Deviation (36.4-46.3) fL RDW Coeff of Diego (11.5-14.5) % Plt Count (130-400) K/uL MPV (7.4-10.4) fL Sodium 139 (136-145) mmol/L Potassium 3.6 (3.5-5.1) mmol/L Chloride 108 H (98-107) mmol/L Carbon Dioxide 21 (21-32) mmol/L Anion Gap 10.0 (3-11) BUN 8 (7-18) mg/dl Creatinine 0.70 (0.6-1.2) mg/dl Est Cr Clr Drug Dosing 154.0 ml/min Est GFR ( Amer) 132.9 ml/min Est GFR (Non-Af Amer) 114.6 ml/min BUN/Creatinine Ratio 11.0 (10-20) Glucose 114 H (70-99) mg/dl Calcium 9.5 (8.5-10.1) mg/dl Total Bilirubin 0.2 (0.2-1) mg/dl AST 26 (15-37) U/L ALT 36 (12-78) U/L Alkaline Phosphatase 119 H (45-117) U/L Total Protein 6.8 (6.4-8.2) gm/dl Albumin 2.5 L (3.4-5.0) gm/dl Globulin 4.3 H (2.5-4.0) gm/dl Albumin/Globulin Ratio 0.6 L (0.9-2) COVID-19 Eval Order SARS-CoV-2, RNA, NAAT (NEGATIVE)
[2021-06-23] MEDS ORDERED: FLUCONAZOLE 50 MG TAB PO ONE (14:00)
[2021-06-23] MEDS ORDERED: ONDANSETRON INJ 2 MG/ML 2 ML VIAL IV PRN (15:42)
[2021-06-23] MEDS ORDERED: BUTORPHANOL TARTRATE 1 MG/ML VIAL IV PRN (15:42)
--- NOTE | 2021-06-23 16:11 | Obstetrical Progress Note ---
Date of Service June 23, 2021 Assessment & Plan Admission and Anticipated Discharge Date Admission Date: June 23, 2021 Subjective Patient is reevaluated. She feels well no complaints. She feels mild cramping is off and on, not painful yet. She has been walking in the hallway with no problems. No leakage of fluid or vaginal bleeding. Positive movements. heart rate had been with reactive NST. Continue to monitor, cervical ripening with Cervidil. All questions were answered. Results & Data ([facility]) Vital Signs (Past 12 Hours) Vital Signs Temp Pulse Resp BP 06/23/21 11:24 87 138/79 06/23/21 11:22 89 146/91 H 06/23/21 11:11 36.6 C 87 20 138/79
--- NOTE | 2021-06-23 23:20 | Obstetrical Progress Note ---
Date of Service June 23, 2021 Assessment & Plan Admission and Anticipated Discharge Date Admission Date: June 23, 2021 Subjective Patient is reevaluated. She started to have contractions which are every 3 to 4 minutes and some more stronger than others. Pain is 4 out of 10 and she does not need anything for pain. No leakage of fluid or vaginal bleeding. Good movements. heart rate had been category 1 with recent reading with decreased variability and mild late decelerations. Vaginal exam is done, cervix is 4 cm dilated, 50% effaced, head at -2 station, Cervidil is removed and scalp stimulation caused acceleration and increased variability. [place] is showing contractions every 2 to 4 minutes. Plan to start penicillin and expectant management until heart rate will be category 1 and then start low-dose Pitocin per protocol. All questions were answered. Results & Data ([facility]) Vital Signs (Past 12 Hours) Vital Signs Temp Pulse Resp BP 06/23/21 20:37 82 138/76 06/23/21 20:36 36.7 C 20 06/23/21 16:46 36.8 C 86 20 130/70 06/23/21 11:24 87 138/79 06/23/21 11:22 89 146/91 H
[2021-06-23] MEDS: LACTATED RINGER'S 1,000 ML IV PRN (23:30)
[2021-06-24] MEDS ORDERED: OXYTOCIN 30 UNITS/500 ML BAG IV PRN ×2 (00:39→11:49)
[2021-06-24] MEDS: PENICILLIN G POTASSIUM 3 MU in DEXTROSE 5% 100 ML IV PRN ×3 (03:30→11:06)
[2021-06-24] MEDS ORDERED: fentaNYL citrate 100 MCG/2 ML VIAL ONE (07:13)
[2021-06-24] MEDS ORDERED: SODIUM CHLORIDE 0.9% INJ 10 ML VIAL ONE (07:13)
[2021-06-24] MEDS ORDERED: BUPIVACAINE 0.25% 30 ML VIAL ONE (07:13)
[2021-06-24] MEDS ORDERED: ePHEDrine sulfate 50 MG/ML AMP ONE (07:13)
[2021-06-24] MEDS ORDERED: fentaNYL 2MCG/ML ROPIVACAINE 1.25MG/ML 100 ML BAG EPI ONE (07:14)
[2021-06-24] MEDS: LACTATED RINGER'S 1,000 ML IV PRN ×2 (07:35→10:11)
[2021-06-24] MEDS ORDERED: diphenhydrAMINE 50 MG/ML VIAL IV PRN (08:15)
[2021-06-24] MEDS ORDERED: NALOXONE HCL 1 MG in SODIUM CHLORIDE 0.9% 1000ML 1,000 ML IV PRN (08:15)
[2021-06-24] MEDS ORDERED: fentaNYL 2MCG/ML ROPIVACAINE 1.25MG/ML 100 ML BAG EPI PRN (08:15)
[2021-06-24] MEDS ORDERED: ePHEDrine sulfate 50 MG/ML AMP IV PRN (08:15)
[2021-06-24] MEDS ORDERED: ONDANSETRON INJ 2 MG/ML 2 ML VIAL IV PRN (08:15)
[2021-06-24] MEDS ORDERED: NALBUPHINE HCL INJ 10 MG/ML AMP IV PRN (08:15)
[2021-06-24] MEDS ORDERED: NALOXONE HCL 0.4 MG/1 ML VIAL/CARP IV PRN (08:15)
[2021-06-24] MEDS ORDERED: PROMETHAZINE HCL 6.25 MG in SODIUM CHLORIDE 0.9% 50 ML IV PRN (08:15)
--- NOTE | 2021-06-24 08:15 | Anesthesiology Consultation ---
Date of Service June 24, 2021 Assessment & Plan (1) Encounter for pre-operative examination: Chart Review Chart Review: Patient NOT seen in Pre Admission Testing and Acceptable Risk for Labor Epidural Consults Requested none ASA ASA2 Proposed Anesthesia Anesthesia Type: Labor Epidural Risk / Benefits Reviewed With: PT / POA / Parent / Guardian, Accepts Plan and Informed Consent Obtained History Height/Weight Height: 5 ft 6 in Weight: 122.47 kg Allergies Allergy/AdvReac Type Severity Reaction Status Date / Time No Known Allergies Allergy Verified 06/23/21 14:04 Medications Home Medications Medication Instructions Recorded Confirmed Last Taken vits no.124-ferrous fum 1 tab PO DAILY 02/28/19 06/23/21 02/27/19 08:00 27 mg iron-folic acid 800 mcg tablet ( Vitamin) Active Medications Generic Name Dose Route Start Last Admin Trade Name Freq PRN Reason Stop Dose Admin Lactated Ringer's 1,000 mls @ 150 mls/hr 06/23/21 12:11 06/24/21 07:35 Lr IV 06/25/21 12:10 999 mls/hr .Q6H40M PRN Administration L&D Protocol Protocol Penicillin G Potassium 3 mu/ 106 mls @ 100 mls/hr 06/23/21 12:11 06/24/21 07:55 Dextrose IV 07/03/21 12:10 100 mls/hr Q4H PRN Administration Give until delivery Oxytocin 30 units in 500 mls @ 4 mls/hr 06/24/21 00:39 06/24/21 06:00 Pitocin IV 06/26/21 00:38 0.24 units/hr .Q24H PRN 4 mls/hr Labor Induction/Augmentation Titration Protocol 0.24 UNITS/HR NPO Date Last Intake of Fluids: 06/24/21 Time Last Intake of Fluids: 06:00 Date Last Intake of Solids: 06/23/21 Time Last Intake of Solids: 23:00 Past Medical History Medical History No known health problems Exercise / Class Metabolic Activity II 4-5 Yardwork/Stairs/Walk up hill Past Surgical History Surgical History (Updated 06/23/21 @ 11:32 by Lisette Franklin RN) No history of previous surgery Past Anesthesia History No Hx of Anesthesia Complications and No Family Hx of Anesthesia Complications History of PONV No Hx of PONV and No Hx of Motion Sickness Social History Smoking Status: Former smoker tobacco type: cigarettes Smoking cigarettes per day: 20 Hx Alcohol Use: No Hx Substance Use: No substance use type: does not use Physical Exam Vital Signs Last Vital Signs Temp 36.7 C 06/23/21 20:36 Pulse 94 H 06/24/21 08:12 Resp 20 06/23/21 20:36 BP 124/72 06/24/21 08:11 Pulse Ox 99 06/24/21 08:12 ENMT Mouth: no dentition abnormality Thyromental Distance: > or= 3.5 Finger Breadths Mallampati Class: II Neck normal visual inspection Respiratory normal respiratory effort Auscultation: lungs clear to auscultation bilaterally Cardiovascular Rate/Rhythm: regular rate and regular rhythm Psychiatric Orientation: alert Testing Laboratory Results 06/23/21 12:26 06/23/21 12:26
--- NOTE | 2021-06-24 08:50 | Labor Progress Brief Note ---
Date of Service June 24, 2021 Assessment & Plan Admission and Anticipated Discharge Date Admission Date: June 23, 2021 Physical Exam Genitourinary: Manual OB Exam: + cervical dilation 5 cm, + cervical effacement 90%, + station -1 and + amniotic fluid (AROM with thin meconium fluid noted) meconium Results & Data ([facility]) Vital Signs (Past 12 Hours) Vital Signs Pulse BP Pulse Ox 06/24/21 08:47 85 100 06/24/21 08:43 86 117/63 06/24/21 08:42 81 98 06/24/21 08:37 82 98 06/24/21 08:32 99 H 99 06/24/21 08:27 93 H 99 06/24/21 08:25 89 121/67 06/24/21 08:22 91 H 99 06/24/21 08:19 101 H 131/74 06/24/21 08:17 102 H 124/68 99 06/24/21 08:15 86 122/57 L 06/24/21 08:13 97 H 133/80 06/24/21 08:12 94 H 99 06/24/21 08:11 92 H 124/72 06/24/21 08:09 87 121/71 06/24/21 08:07 91 H 125/67 98 06/24/21 08:05 85 130/63 06/24/21 08:02 79 100 06/24/21 07:57 89 100 06/24/21 07:07 77 127/85 06/24/21 06:37 84 131/61 06/24/21 06:06 89 128/90 06/24/21 05:42 76 133/89 06/24/21 05:12 77 129/85 06/24/21 04:42 83 125/60 06/24/21 03:12 75 118/72 06/24/21 02:39 84 121/70 06/24/21 02:00 89 124/86
--- NOTE | 2021-06-24 11:42 | Delivery Summary ---
Vaginal Delivery Summary Date of Service June 24, 2021 Vaginal Delivery Summary Delivery Note live male JAVAN over intact perineum with nuchal cord x1 reduced at delivery. Delayed cord clamping with Apgars 9/9 weight pending. Cord blood obtained followed by spontaneous delivery of intact placenta. No tears. EBL 100 ml. Final sponge and instrument count are correct. Mom and baby stable.
[2021-06-24] MEDS ORDERED: SUPERCREAM 0.870% 15 GM JAR EXT PRN (11:49)
[2021-06-24] MEDS ORDERED: HYDROCORTISONE ACETATE 25 MG SUPP PR PRN (11:49)
[2021-06-24] MEDS ORDERED: ACETAMINOPHEN 325 MG TAB PO PRN (11:49)
[2021-06-24] MEDS ORDERED: BENZOCAINE 20% AER SPR 82.5 GM CAN EXT PRN (11:49)
[2021-06-24] MEDS ORDERED: DIPHTHERIA/TETANUS/PERTUSSIS 0.5 ML SYR/VIAL IM ONE (11:49)
[2021-06-24] MEDS ORDERED: bisacodyL 10 MG SUPP PR PRN (11:49)
--- NOTE | 2021-06-24 13:08 | Anesthesia Procedure Note ---
Date of Service June 24, 2021 Anesthesia Post Epidural Note Vital Signs Vital Signs: Temp Pulse Resp BP Pulse Ox 36.7 C 88 20 143/63 H 99 06/24/21 07:07 06/24/21 12:54 06/24/21 07:07 06/24/21 12:54 06/24/21 11:42 Notes Mental Status: alert / awake / arousable Nausea / Vomiting: adequately controlled Pain: adequately controlled Airway Patency, RR, SpO2: stable & adequate BP & HR: stable & adequate Hydration State: stable & adequate Neuraxial Anesthesia: was administered and sensory block is resolving Anesthetic Complications: no major complications apparent and Pt Satisfied with anesthetic care Epidural: Removed without complications and With tip intact
[2021-06-24] MEDS: IBUPROFEN 600 MG TAB PO PRN (17:56)
[2021-06-24] MEDS: DOCUSATE SODIUM 100 MG CAP PO SCH (21:05)
[2021-06-25] MEDS: IBUPROFEN 600 MG TAB PO PRN (06:19)
[2021-06-25 06:38] LABS: Hematocrit (blood only) 33.4 % (37-47); Hemoglobin 11.3 g/dL (12.0-16.0); Mean Corpuscular Hemoglobin 28.7 pg (25-34); Mean Corpuscular Hgb Conc 33.8 g/dL (32-36); Mean Corpuscular Volume 84.8 fL (80-100); Platelet Count 251 K/uL (130-400); RDW Coefficient of Variation 14.3 % (11.5-14.5); RDW Standard Deviation 44.1 fL (36.4-46.3); Red Blood Count 3.94 M/uL (4.2-5.4); White Blood Count 13.06 K/uL (4.8-10.8)
[2021-06-25] MEDS ORDERED: FERROUS SULFATE 325 MG TAB PO SCH (08:00)
[2021-06-25] MEDS ORDERED: PRENATAL VITAMIN 1 TAB PO SCH ×2 (08:00→09:00)
[2021-06-25] MEDS: DOCUSATE SODIUM 100 MG CAP PO SCH (08:19)
--- NOTE | 2021-06-25 08:32 | Obstetrical Progress Note ---
Date of Service June 25, 2021 Assessment & Plan Admission and Anticipated Discharge Date Admission Date: June 23, 2021 Subjective Patient is seen and examined. She feels well, no complaints. Desires d/c today. Ambulating without dizziness Voiding without difficulty Tolerating regular diet with out N&V Bleeding is minimal No fever/ chills/ CP/ SOB/ N&V/ Leg pain Breast feeding without problems Vital Signs Temp Pulse Pulse Resp BP BP Pulse Ox 06/25/21 07:25 36.8 C 80 18 115/81 06/25/21 04:15 36.8 C 83 16 108/77 98 06/24/21 23:40 36.5 C 84 18 114/76 97 06/24/21 19:30 36.8 C 80 18 140/91 06/24/21 12:54 88 143/63 H 06/24/21 12:39 87 163/65 H 06/24/21 12:09 82 123/70 06/24/21 11:53 113 H 124/64 06/24/21 11:42 89 99 06/24/21 11:39 98 H 129/63 06/24/21 11:37 99 H 99 06/24/21 11:32 104 H 100 06/24/21 11:27 103 H 99 06/24/21 11:24 104 H 90 06/24/21 11:22 96 H 100 06/24/21 11:17 91 H 100 06/24/21 11:13 77 119/63 06/24/21 11:12 83 99 06/24/21 11:07 77 99 06/24/21 11:02 84 100 06/24/21 10:57 89 100 06/24/21 10:52 85 99 06/24/21 10:47 83 100 06/24/21 10:44 78 115/57 L 06/24/21 10:42 78 100 06/24/21 10:37 80 100 06/24/21 10:32 81 100 06/24/21 10:28 83 130/72 06/24/21 10:27 90 98 06/24/21 10:22 89 98 06/24/21 10:17 82 100 06/24/21 10:14 72 119/71 06/24/21 10:12 81 99 06/24/21 10:07 82 100 06/24/21 10:02 80 98 06/24/21 09:59 76 126/76 06/24/21 09:57 86 99 06/24/21 09:52 81 98 06/24/21 09:47 78 97 06/24/21 09:45 81 117/63 06/24/21 09:42 83 99 06/24/21 09:38 94 H 94 06/24/21 09:37 85 97 06/24/21 09:32 82 97 06/24/21 09:28 78 110/60 06/24/21 09:27 76 97 06/24/21 09:22 80 96 06/24/21 09:17 81 96 06/24/21 09:13 76 111/60 06/24/21 09:12 82 97 06/24/21 09:07 80 99 06/24/21 09:02 87 98 06/24/21 08:57 85 99 06/24/21 08:52 89 100 06/24/21 08:47 85 100 06/24/21 08:43 86 117/63 06/24/21 08:42 81 98 06/24/21 08:37 82 98 06/24/21 08:32 99 H 99 Lab Results 06/23/21 06/23/21 06/23/21 Range/Units 12:15 12:15 12:26 WBC 11.40 H (4.8-10.8) K/uL RBC 4.19 L (4.2-5.4) M/uL Hgb 12.1 (12.0-16.0) g/dL Hct 36.4 L (37-47) % MCV 86.9 (80-100) fL MCH 28.9 (25-34) pg MCHC 33.2 (32-36) g/dL RDW Std Deviation 45.1 (36.4-46.3) fL RDW Coeff of Diego 14.2 (11.5-14.5) % Plt Count 272 (130-400) K/uL MPV 10.8 H (7.4-10.4) fL Sodium (136-145) mmol/L Potassium (3.5-5.1) mmol/L Chloride (98-107) mmol/L Carbon Dioxide (21-32) mmol/L Anion Gap (3-11) BUN (7-18) mg/dl Creatinine (0.6-1.2) mg/dl Est Cr Clr Drug Dosing ml/min Est GFR ( Amer) ml/min Est GFR (Non-Af Amer) ml/min BUN/Creatinine Ratio (10-20) Glucose (70-99) mg/dl Calcium (8.5-10.1) mg/dl Total Bilirubin (0.2-1) mg/dl AST (15-37) U/L ALT (12-78) U/L Alkaline Phosphatase (45-117) U/L Total Protein (6.4-8.2) gm/dl Albumin (3.4-5.0) gm/dl Globulin (2.5-4.0) gm/dl Albumin/Globulin Ratio (0.9-2) COVID-19 [facility] SARS-CoV-2, RNA, NAAT NEGATIVE (NEGATIVE) 06/23/21 06/25/21 Range/Units 12:26 06:13 WBC 13.06 H (4.8-10.8) K/uL RBC 3.94 L (4.2-5.4) M/uL Hgb 11.3 L (12.0-16.0) g/dL Hct 33.4 L (37-47) % MCV 84.8 (80-100) fL MCH 28.7 (25-34) pg MCHC 33.8 (32-36) g/dL RDW Std Deviation 44.1 (36.4-46.3) fL RDW Coeff of Diego 14.3 (11.5-14.5) % Plt Count 251 (130-400) K/uL MPV 11.0 H (7.4-10.4) fL Sodium 139 (136-145) mmol/L Potassium 3.6 (3.5-5.1) mmol/L Chloride 108 H (98-107) mmol/L Carbon Dioxide 21 (21-32) mmol/L Anion Gap 10.0 (3-11) BUN 8 (7-18) mg/dl Creatinine 0.70 (0.6-1.2) mg/dl Est Cr Clr Drug Dosing 154.0 ml/min Est GFR ( Amer) 132.9 ml/min Est GFR (Non-Af Amer) 114.6 ml/min BUN/Creatinine Ratio 11.0 (10-20) Glucose 114 H (70-99) mg/dl Calcium 9.5 (8.5-10.1) mg/dl Total Bilirubin 0.2 (0.2-1) mg/dl AST 26 (15-37) U/L ALT 36 (12-78) U/L Alkaline Phosphatase 119 H (45-117) U/L Total Protein 6.8 (6.4-8.2) gm/dl Albumin 2.5 L (3.4-5.0) gm/dl Globulin 4.3 H (2.5-4.0) gm/dl Albumin/Globulin Ratio 0.6 L (0.9-2) COVID-19 Eval Order SARS-CoV-2, RNA, NAAT (NEGATIVE) PE: General: Alert, orientedx3, NAD Abd: soft, NT, fundus firm, below Umbilicus Perineum intact, Lochia rubra minimal Ext; NT, no edema AP: 30 yo s/p , ppd# 1 VSS Afebrile doing well Continue routine care All questions were answered D/C home this afternoon , f/u in office Results & Data ([facility]) Vital Signs (Past 12 Hours) Vital Signs Temp Pulse Resp BP Pulse Ox 06/25/21 07:25 36.8 C 80 18 115/81 06/25/21 04:15 36.8 C 83 16 108/77 98 06/24/21 23:40 36.5 C 84 18 114/76 97
[2021-06-25] MEDS ORDERED: bisacodyL 5 MG TABEC PO SCH (20:00)
== END 2021-06-25 13:55 | disposition home or self-care (01) | DRG 807 ==
LOC: 4S1 10:59 → 4S2 06-24 15:40